=== PATIENT | female | born 1995 | race Caucasian/White ===

== ENCOUNTER 2023-08-05 04:16 | Inpatient (IN) | payer SELFPAY ==
[~2023-08-05 04:16] MED LIST: Lidocaine 1% 10 ML MDV ONE
[2023-08-05] MEDS ORDERED: Nalbuphine HCl 10 MG/ 1ML Amp IVPUSH PRN (04:47)
[2023-08-05] MEDS ORDERED: Ondansetron 4 MG/2 ML SDV IVPUSH PRN (04:47)
[2023-08-05] MEDS ORDERED: Sodium Chloride 0.9% 10 ML Syringe FLUSH PRN (04:47)
[2023-08-05] MEDS ORDERED: Acetaminophen 325 MG Tab PO PRN (04:47)
[2023-08-05] MEDS ORDERED: Calcium Carbonate 500 MG Tab.Chew PO PRN (04:47)
[2023-08-05] MEDS ORDERED: Lidocaine 1% 50 ML MDV INJECT PRN (04:47)
[2023-08-05] MEDS ORDERED: Oxytocin/Lactated Ringers 30 UNIT/500 ML BAG IV SCH (05:00)
[2023-08-05 05:45] LABS: BASOPHILS PERCENT AUTO 0.1 % (0.0-1.0); EOSINOPHILS PERCENT AUTO 0.1 % (0.0-6.0); HEMATOCRIT 35.7 % (37.0-47.0); HEMOGLOBIN 12.5 gm/dl (12.0-16.0); IMMATURE GRAN ABSOLUTE AUTO 0.08 K/mm3 (0.00-0.05); IMMATURE GRAN PERCENT AUTO 0.5 % (0.0-0.4); LYMPHOCYTES ABSOLUTE AUTO 1.3 K/mm3 (1.0-4.8); LYMPHOCYTES PERCENT AUTO 8.2 % (24.0-44.0); MEAN CORPUSCULAR HEMOGLOBIN 33.2 pg (28.0-32.0); MEAN CORPUSCULAR VOLUME 94.7 fl (83.0-99.0); MEAN PLATELET VOLUME 9.9 fl (9.4-12.3); MONOCYTES ABSOLUTE AUTO 0.6 K/mm3 (0.0-0.8); MONOCYTES PERCENT AUTO 4.1 % (0.0-8.0); NEUTROPHILS ABSOLUTE AUTO 13.7 K/mm3 (1.8-7.7); PLATELET COUNT,PLT 187 K/mm3 (150-400); RED BLOOD CELL COUNT 3.77 M/mm3 (4.10-5.30); WHITE BLOOD CELL COUNT,WBC 15.69 K/mm3 (3.9-11.3)
[2023-08-05] MEDS: Lactated Ringers 1,000 ML IV SCH (07:31)
[2023-08-05] MEDS ORDERED: diphenhydrAMINE 50 MG/ML SDV IVPUSH PRN (07:35)
[2023-08-05] MEDS ORDERED: Phenylephrine 1% 10 MG/ML SDV IVPUSH PRN (07:35)
[2023-08-05] MEDS ORDERED: ePHEDrine 50 MG/ML SDV IVPUSH PRN (07:35)
[2023-08-05] MEDS: fentaNYL 100 MCG/2 ML SDV EPIDUR PRN (07:46)
[2023-08-05] MEDS: Bupivacaine/fentaNYL/NS 100 ML Bag EPIDUR PRN (07:46)
[2023-08-05] MEDS: Oxytocin/Lactated Ringers 30 UNIT/500 ML BAG IV SCH (11:41)
[2023-08-05] MEDS: Benzocaine/Menthol 20%-0.5% Spray 78 GM Cannister TOP PRN (13:19)
[2023-08-05] MEDS: Witch Hazel Medicated Pads 40/Jar TOP PRN (13:19)
[2023-08-05] MEDS: Ibuprofen 600 MG Tab PO PRN (16:23)
[2023-08-05 17:51] LABS: BASOPHILS PERCENT AUTO 0.1 % (0.0-1.0); EOSINOPHILS PERCENT AUTO 0.2 % (0.0-6.0); HEMATOCRIT 32.6 % (37.0-47.0); HEMOGLOBIN 11.4 gm/dl (12.0-16.0); IMMATURE GRAN ABSOLUTE AUTO 0.09 K/mm3 (0.00-0.05); IMMATURE GRAN PERCENT AUTO 0.5 % (0.0-0.4); LYMPHOCYTES ABSOLUTE AUTO 2.2 K/mm3 (1.0-4.8); LYMPHOCYTES PERCENT AUTO 11.7 % (24.0-44.0); MEAN CORPUSCULAR HEMOGLOBIN 33.3 pg (28.0-32.0); MEAN CORPUSCULAR VOLUME 95.3 fl (83.0-99.0); MEAN PLATELET VOLUME 9.3 fl (9.4-12.3); MONOCYTES PERCENT AUTO 5.6 % (0.0-8.0); NEUTROPHILS ABSOLUTE AUTO 15.3 K/mm3 (1.8-7.7); NEUTROPHILS PERCENT AUTO 81.9 % (41.0-71.0); PLATELET COUNT,PLT 187 K/mm3 (150-400); RED BLOOD CELL COUNT 3.42 M/mm3 (4.10-5.30); WHITE BLOOD CELL COUNT,WBC 18.65 K/mm3 (3.9-11.3)
[2023-08-05] MEDS: Docusate Sodium 100 MG Cap PO PRN (21:01)
[2023-08-05] MEDS: Acetaminophen 325 MG Tab PO PRN (21:04)
== END 2023-08-06 14:38 | disposition home or self-care (01) | DRG 807 ==
LOC: JD.OBCHECK 04:16 → JD.OB 04:19 → JD.OBCHECK 04:47 → JD.OB 04:47 → OBSVTOIN 11:41 → JD.OB 11:42
PROVIDERS: ADMIT Obstetrics & Gynecology; ATTEND Obstetrics & Gynecology
PROC: 10E0XZZ Delivery of Products of Conception, External Approach (ICD-10-PCS; principal; 2023-08-05)
PROC: 3E0R3BZ Introduction of Anesthetic Agent into Spinal Canal, Percutaneous Approach (ICD-10-PCS; 2023-08-05)
PROC: 00HU33Z Insertion of Infusion Device into Spinal Canal, Percutaneous Approach (ICD-10-PCS; 2023-08-05)
PROC: 0HQ9XZZ Repair Perineum Skin, External Approach (ICD-10-PCS; 2023-08-05)
PROC: 10907ZC Drainage of Amniotic Fluid, Therapeutic from Products of Conception, Via Natural or Artificial Opening (ICD-10-PCS; 2023-08-05)
DX: O48.0 Post-term pregnancy (principal); Z37.0 Single live birth; Z3A.40 40 weeks gestation of pregnancy; O34.219 Maternal care for unspecified type scar from previous cesarean delivery; O70.9 Perineal laceration during delivery, unspecified; O71.89 Other specified obstetric trauma
CPT/HCPCS: 36415; 51702; 59025; 59409; 85025; 86592; 86850; 86900; 86901; A9270-GY; J3010; J3490; J7120; J7999